=== PATIENT | female | born 2000 | race Caucasian/White ===

== ENCOUNTER 2025-06-18 22:01 | Emergency (ER) | payer MEDICAID, SELFPAY ==
[2025-06-19] MEDS ORDERED: Acetaminophen 500 MG TAB ONE (02:44)
[2025-06-19 03:19] LABS: Bacteria/HPF None Seen HPF (None Seen); CAUTI Indications for Culture Pelvic or flank pain; Glucose, Urine (Dipstick) Normal (Negative); Leukocyte Negative Leu/uL (Negative); Protein, Urine (Dipstick) Negative (Neg-Trace); RBC/HPF 0-3 HPF (0-3); Specific Gravity, Urine 1.026 (1.002-1.036); WBC/HPF 0-3 HPF (0-3)
[2025-06-19 03:23] LABS: Urine Culture Reflex No No
[2025-06-19] MEDS ORDERED: Ondansetron PF 4 MG/2 ML Vial ONE (05:25)
[2025-06-19] MEDS ORDERED: diphenhydrAMINE 50 MG/ML VIAL ONE (05:50)
[2025-06-19 06:00] LABS: BHCG - Serum Negative (NEGATIVE); Pregs Control Background? CLEAR/WHITE (CLR/WHITE); Pregs Control Bar Appear? YES (CONTROL BAR)
[2025-06-19 06:11] LABS: ALT (SGPT) 7 U/L (Less than 34); AST (SGOT) 18 U/L (11-34); Albumin 4.1 g/dL (3.1-4.5); Alkaline Phosphatase 54 U/L (40-110); Anion Gap 11 mmol/L (10-20); BUN (Urea Nitrogen) 12 mg/dL (7.0-18.7); Bilirubin, Total 0.5 mg/dL (0.3-1.2); Calc. Creatinine Clearance 0 mL/min (70-130); Calcium 8.5 mg/dL (7.8-10.44); Carbon Dioxide 24 mmol/L (22-29); Chloride 108 mmol/L (98-107); Globulin 2.1 g/dL (2.4-3.5); Glucose 81 mg/dL (70-105); Lipase 16 U/L (8-78); Potassium 3.8 mmol/L (3.5-5.1); Sodium 139 mmol/L (136-145)
[2025-06-19 06:17] LABS: #Basophils 0.09 10x3/uL (0.0-0.2); #Eosinophils 0.12 10x3/uL (0.0-0.7); #Monocytes 0.54 10x3/uL (0.11-0.59); #Neutrophils 5.50 10x3/uL (1.40-6.50); %Basophils 1.1 % (0.0-1.0); %Eosinophils 1.4 % (0.0-10.0); %Lymphocytes 26.3 % (21.0-51.0); %Monocytes 6.3 % (0.0-10.0); %Neutrophils 64.5 % (42.0-75.0); Hematocrit 34.8 % (36.0-47.0); Hemoglobin 11.0 g/dL (12.0-16.0); Mean Corpuscular Hemoglobin 28.1 pg (27.0-31.0); Mean Corpuscular Volume 88.8 fL (78.0-98.0); Platelet Count 196 10x3/uL (130-400); Red Blood Cell (RBC) Count 3.92 mill/uL (4.20-5.40); White Blood Cell (WBC) Count 8.52 10x3/uL (4.8-10.8)
[2025-06-19] MEDS ORDERED: Iopamidol 370 76% 100 ML VIAL ONE (11:12)
== END 2025-06-19 07:25 | disposition home or self-care (01) ==
LOC: ERS 22:01
DX: R10.30 Lower abdominal pain, unspecified (principal)
CPT/HCPCS: 74177; 76856; 80053; 81001; 83690; 84703; 85025; 96374; 96375; J1200; J2270; J2405; Q9967